=== PATIENT | female | born 2000 | race Hispanic/Latino ===

== ENCOUNTER 2018-09-21 17:04 | Emergency (ER) | payer SELFPAY ==
[2018-09-21] MEDS ORDERED: IBUPROFEN 400 MG TAB ONE (17:44)
[2018-09-21] MEDS ORDERED: CEPHALEXIN 250 MG CAP ONE (17:44)
[2018-09-21] MEDS ORDERED: ONDANSETRON 4 MG (ODT) TAB ONE (17:45)
[2018-09-21] MEDS ORDERED: IBUPROFEN 200 MG TAB PO ONE (17:45)
--- NOTE | 2018-09-21 18:28 | EDPHYS ---
Physician Documentation [facility] Name: Brandi Porras Age: 18 yrs Sex: Female : 2000 Arrival Date: 09/21/2018 Time: 17:04 Bed 20 Private MD: ED Physician Branden Treadwell HPI: 09/21 17:18 This 18 yrs old Female presents to ER via Ambulatory with complaints of bit by spider, kb nausea, headache. 17:18 The patient was bitten on the right side of forehead, by a spider. Onset: The kb symptoms/episode began/occurred 3 hour(s) ago. Secondary to the bite the patient reports pain. Associated signs and symptoms: Pertinent positives: pain at site. Severity of symptoms: At their worst the symptoms were moderate. The patient has not experienced similar symptoms in the past. The patient has been recently seen by a physician:. Pt reports she was bit by a spider at hairline, right side of forehead 3 hours ago. STates she has had pain, headache and nausea since then. Went to a clinic and was given a shot of kenalog and told to come to the ER to see if the spider was poisonous. . 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 - Social history:: Smoking status: Patient/guardian denies using tobacco. - Ebola Screening: : No symptoms or risks identified at this time. ROS: 17:21 Constitutional: Negative for fever, chills, and weight loss, ENT: Negative for injury, kb pain, and discharge, Neck: Negative for injury, pain, and swelling, Cardiovascular: Negative for chest pain, palpitations, and edema, Respiratory: Negative for shortness of breath, cough, wheezing, and pleuritic chest pain, Abdomen/GI: Negative for abdominal pain, vomiting, diarrhea, and constipation. +nausea MS/Extremity: Negative for injury and deformity. 17:21 Neuro: Positive for headache. Exam: 17:21 Constitutional: This is a well developed, well nourished patient who is awake, alert, kb and in no acute distress. Head/Face: Normocephalic, atraumatic. ENT: Nares patent. No nasal discharge, no septal abnormalities noted. Tympanic membranes are normal and external auditory canals are clear. Oropharynx with no redness, swelling, or masses, exudates, or evidence of obstruction, uvula midline. Mucous membranes moist. Neck: Trachea midline, no thyromegaly or masses palpated, and no cervical lymphadenopathy. Supple, full range of motion without nuchal rigidity, or vertebral point tenderness. No Meningismus. Chest/axilla: Normal chest wall appearance and motion. Nontender with no deformity. No lesions are appreciated. Cardiovascular: Regular rate and rhythm with a normal S1 and S2. No gallops, murmurs, or rubs. Normal PMI, no JVD. No pulse deficits. Respiratory: Lungs have equal breath sounds bilaterally, clear to auscultation and percussion. No rales, rhonchi or wheezes noted. No increased work of breathing, no retractions or nasal flaring. Abdomen/GI: Soft, non-tender, with normal bowel sounds. No distension or tympany. No guarding or rebound. No evidence of tenderness throughout. Back: No spinal tenderness. No costovertebral tenderness. Full range of motion. Skin: Warm, dry with normal turgor. Normal color with no rashes, no lesions, and no evidence of cellulitis. MS/ Extremity: Pulses equal, no cyanosis. Neurovascular intact. Full, normal range of motion. Neuro: Awake and alert, GCS 15, oriented to person, place, time, and situation. Cranial nerves II-XII grossly intact. Motor strength 5/5 in all extremities. Sensory grossly intact. Cerebellar exam normal. Normal gait. Vital Signs: 17:05 BP 118 / 62; Pulse 60; Resp 18; Temp 98.3(TE); Pulse Ox 100% on R/A; Weight 59.87 kg; hj Height 5 ft. 1 in. (154.94 cm); 18:30 BP 107 / 68; Pulse 64; Resp 18; Temp 97.5; Pulse Ox 99% on R/A; ph 17:05 Body Mass Index 24.94 (59.87 kg, 154.94 cm) hj MDM: 17:08 Patient medically screened. caitlin 17:21 Data reviewed: vital signs, nurses notes. Data interpreted: Pulse oximetry: on room air kb is 100 %. Interpretation: normal. 17:21 ED course: no redness, swelling or other signs of insect bite. Unable to determine kb exact spot pt was bit. . 18:06 Counseling: I had a detailed discussion with the patient and/or guardian regarding: the kb historical points, exam findings, and any diagnostic results supporting the discharge/admit diagnosis, the need for outpatient follow up, a family practitioner, to return to the emergency department if symptoms worsen or persist or if there are any questions or concerns that arise at home. Administered Medications: 18:05 Drug: Zofran 4 mg Route: PO; ph 19:00 Follow up: Response: No adverse reaction; Nausea is decreased ph 18:20 Drug: Ibuprofen 600 mg Route: PO; ph 19:00 Follow up: Response: No adverse reaction; Pain is decreased ph 18:20 Drug: KeFLEX 500 mg Route: PO; ph 19:00 Follow up: Response: No adverse reaction ph Disposition: 09/22 07:04 Co-signature as Attending Physician, Branden Treadwell MD I agree with the assessment and kdr plan of care. Disposition: 09/21/18 18:26 Discharged to Home. Impression: Bitten or stung by nonvenomous insect and other nonvenomous arthropods. - Condition is Stable. - Discharge Instructions: Spider Bite, [id number]. - Prescriptions for Keflex 250 mg Oral Capsule - take 1 capsule by ORAL route every 8 hours for 7 days; 21 capsule. - Medication Reconciliation Form, Thank You Letter, Antibiotic Education, Prescription Opioid Use form. - Follow up: Emergency Department; When: As needed; Reason: Worsening of condition. Follow up: Private Physician; When: 2 - 3 days; Reason: Recheck today's complaints, Continuance of care, Re-evaluation by your physician. Signatures: Renita Kaur, HEALTHCARE RECRUITER-C [place]-Branden Garcia MD MD [facility] Pamela Patiño RN RN ph Mauricio Rowland RN RN Corrections: (The following items were deleted from the chart) 08 19:08 18:26 09/21/2018 18:26 Discharged to Home. Impression: Bitten or stung by nonvenomous ph insect and other nonvenomous arthropods. Condition is Stable. Discharge Instructions: Spider Bite, [id number]. Prescriptions for Keflex 250 mg Oral Capsule - take 1 capsule by ORAL route every 8 hours for 7 days; 21 capsule. and Forms are Medication Reconciliation Form, Thank You Letter, Antibiotic Education, Prescription Opioid Use. Follow up: Emergency Department; When: As needed; Reason: Worsening of condition. Follow up: Private Physician; When: 2 - 3 days; Reason: Recheck today's complaints, Continuance of care, Re-evaluation by your physician. kb
--- NOTE | 2018-09-21 18:28 | ER ---
Nurse's Notes [facility] Name: Brandi Porras Age: 18 yrs Sex: Female : 2000 Arrival Date: 09/21/2018 Time: 17:04 Bed 20 Private MD: Diagnosis: Bitten or stung by nonvenomous insect and other nonvenomous arthropods Presentation: 09/21 17:03 Presenting complaint: states: he was bitten by a spider 3 hours ago on her R hj forehead; reports N/V; reports headache;. Transition of care: patient was not received from another setting of care. Onset of symptoms was September 21, 2018. Risk Assessment: Do you want to hurt yourself or someone else? Patient reports no desire to harm self or others. Initial Sepsis Screen: Does the patient meet any 2 criteria? No. Patient's initial sepsis screen is negative. Does the patient have a suspected source of infection? No. Patient's initial sepsis screen is negative. Care prior to arrival: None. 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 - Social history:: Smoking status: Patient/guardian denies using tobacco. - Ebola Screening: : No symptoms or risks identified at this time. Screenin:30 Abuse screen: Denies threats or abuse. Denies injuries from another. Nutritional ph screening: No deficits noted. Tuberculosis screening: No symptoms or risk factors identified. Fall Risk None identified. Assessment: 17:30 General: Appears in no apparent distress. comfortable, well groomed, Behavior is calm, ph cooperative, appropriate for age, drowsy. Pain: Complains of pain in right side of forehead. Neuro: Level of Consciousness is awake, alert, obeys commands, Oriented to person, place, time, situation. Cardiovascular: Capillary refill < 3 seconds in bilateral fingers Patient's skin is warm and dry. Respiratory: Airway is patent Respiratory effort is even, unlabored, Respiratory pattern is regular, symmetrical, Denies shortness of breath. GI: Reports nausea, Patient currently denies abdominal pain, vomiting. Derm: Skin is healthy with good turgor, Skin is pink, warm \T\ dry. Musculoskeletal: Circulation, motion, and sensation intact. Range of motion: intact in all extremities. Injury Description: Bite sustained to right side of forehead caused by a spider. 18:45 Reassessment: Patient appears in no apparent distress at this time. Patient and/or ph family updated on plan of care and expected duration. Pain level reassessed. Patient is alert, oriented x 3, equal unlabored respirations, skin warm/dry/pink. Patient denies pain at this time. Patient states feeling better. Patient states symptoms have improved. Vital Signs: 17:05 BP 118 / 62; Pulse 60; Resp 18; Temp 98.3(TE); Pulse Ox 100% on R/A; Weight 59.87 kg; hj Height 5 ft. 1 in. (154.94 cm); 18:30 BP 107 / 68; Pulse 64; Resp 18; Temp 97.5; Pulse Ox 99% on R/A; ph 17:05 Body Mass Index 24.94 (59.87 kg, 154.94 cm) ED Course: 17:04 Patient arrived in ED. rg4 17:04 Triage completed. hj 17:05 Arm band placed on right wrist. hj 17:07 Renita Kaur [facility]C [facility]. kb 17:08 Branden Treadwell MD is Attending Physician. kb 17:30 Patient has correct armband on for positive identification. Bed in low position. Call ph light in reach. Side rails up X 1. Pulse ox on. NIBP on. Door closed. Noise minimized. Warm blanket given. 17:34 Pamela Patiño, RN is Primary Nurse. ph 19:00 No provider procedures requiring assistance completed. Patient did not have IV access ph during this emergency room visit. Administered Medications: 18:05 Drug: Zofran 4 mg Route: PO; ph 19:00 Follow up: Response: No adverse reaction; Nausea is decreased ph 18:20 Drug: Ibuprofen 600 mg Route: PO; ph 19:00 Follow up: Response: No adverse reaction; Pain is decreased ph 18:20 Drug: KeFLEX 500 mg Route: PO; ph 19:00 Follow up: Response: No adverse reaction ph Outcome: 18:26 Discharge ordered by . kb 19:08 Patient left the ED. ph 19:08 Discharged to home ambulatory, with family. ph 19:08 Condition: good 19:08 Discharge instructions given to patient, family, Instructed on discharge instructions, follow up and referral plans. medication usage, Demonstrated understanding of instructions, follow-up care, medications, Prescriptions given X 1. Signatures: Renita Kaur, AMERICA-C AMERICA-Pamela Farias RN RN Mauricio Rowland RN RN Nabila Ruby rg4 Corrections: (The following items were deleted from the chart) 17:06 17:05 Pulse 60bpm; Resp 18bpm; Pulse Ox 100% RA; Temp 98.3F Temporal; 59.87 kg; Height hj 5 ft. 1 in.; BMI: 24.9; hj
== END 2018-09-21 19:08 | disposition home or self-care (01) ==
LOC: ER 17:04
DX: S00.86XA Insect bite (nonvenomous) of other part of head, initial encounter (principal)
CPT/HCPCS: 99283